=== PATIENT | female | born 2000 | race Two or more races ===

== ENCOUNTER 2024-10-06 09:44 | Emergency (ER) | payer OTHER ==
[~2024-10-06] VITALS: Ht 180.3 cm; Wt 72.6 kg
[2024-10-06] MEDS ORDERED: ELVITEG/COB/EMTRI/TENOFO DISOP 1 UDTAB TABLET PO ONE ×2 (12:55→13:15)
[2024-10-06] MEDS ORDERED: METROnidazole 500 MG TABLET (vss) PO ONE (12:56)
[2024-10-06] MEDS ORDERED: FF) NORGESTREL-ETHINYL ESTRADIOL TAB PO ONE (13:15)
[2024-10-06] MEDS ORDERED: DOXYCYCLINE HYCLATE 100MG EACH PO ONE (13:15)
[2024-10-06] MEDS ORDERED: METROnidazole 500 MG TABLET PO ONE (13:15)
[2024-10-06] MEDS ORDERED: CEFTRIAXONE SODIUM 500 MG VIAL IM ONE (13:15)
[2024-10-06 14:18] LABS: BASO % 0.4 % (0.1-1.2); EOS # 0.02 (0.04-0.54); EOS % 0.4 % (0.7-7.0); HEMOGLOBIN 13.7 g/dL (11.2-15.7); LYMPH # 1.44 (1.18-3.74); LYMPH % 26.7 % (19.3-53.1); MEAN CORPUSCULAR HEMOGLOBIN 29.5 pg (25.6-32.2); MONO # 0.31 (0.24-0.82); MONO % 5.7 % (4.7-12.5); NEUT # 3.61 (1.56-6.13); NEUT % 66.8 % (34.0-71.1); PLATELET COUNT 347 K/uL (163-369); RED BLOOD COUNT 4.64 M/uL (3.93-5.22); RED CELL DISTRIBUTION WIDTH 12.1 % (11.6-14.4)
[2024-10-06 14:29] LABS: URINE APPEARANCE Clear; URINE BILIRRUBIN Negative (NEGATIVE); URINE BLOOD Small; URINE COLOR Yellow; URINE GLUCOSE Negative (NEGATIVE); URINE LEUKOCYTE Negative; URINE NITRATE Negative; URINE PROTEIN Trace (NEGATIVE); URINE UROBILINOGEN 0.2 E.U./dl
[2024-10-06 14:30] LABS: URINE EPITHELIAL CELLS 18.6 uL (0.0-38.8); URINE WBC 8.8 uL (0.0-23.2)
[2024-10-06 14:37] LABS: INFLUENZA A AG NEGATIVE (NEGATIVE); URINE KETONE 40 (NEGATIVE)
[2024-10-06 14:38] LABS: COVID-19 AG NEGATIVE (NEGATIVE)
[2024-10-06 14:44] LABS: CALCIUM 9.5 mg/dL (8.5-10.1); CREATININE SERUM 0.9 mg/dL (0.55-1.02); GFR 76.29; POTASSIUM 4.34 mEq/L (3.5-5.1)
[2024-10-06 14:59] LABS: COCAINE NEGATIVE (NEGATIVE); METHADONE NEGATIVE (NEGATIVE); OPIATES NEGATIVE (NEGATIVE); THC ( Cannabinoids) POSITIVE (NEGATIVE)
== END 2024-10-06 17:46 | disposition home or self-care (01) ==
LOC: ER 10:06
PROVIDERS: Emergency Medicine
DX: T76.21XA Adult sexual abuse, suspected, initial encounter (principal); Z20.822 Contact with and (suspected) exposure to COVID-19
CPT/HCPCS: 36415; 96372; 99282; J0696